=== PATIENT | male | born 1990 | race Two or more races ===

== ENCOUNTER 2021-08-26 00:17 | Emergency (ER) | payer MEDICAID ==
[~2021-08-26] VITALS: Ht 172.7 cm; Wt 175.0 kg
[2021-08-26] MEDS ORDERED: LIDOCAINE 1% 10 ML VIAL ID ONE (01:15)
[2021-08-26] MEDS ORDERED: PERTUSS(ACELL),DIPH,TET VAC/PF 0.5 ML SYRINGE IM. ONE (01:15)
[2021-08-26] MEDS ORDERED: SULFAMETHOX/TRIMETH DS 800-160 MG/TABLET PO ONE (02:00)
[2021-08-26] MEDS ORDERED: CEPHALEXIN MONOHYDRATE 500 MG CAPSULE PO ONE (02:00)
[2021-08-26] MEDS ORDERED: ACETAMINOPHEN 325 MG TABLET PO ONE (02:00)
[2021-08-26] MEDS ORDERED: CLINDAMYCIN HCL 150 MG CAPSULE PO ONE (02:15)
[2021-08-26 02:21] VITALS: BP 121/66
== END 2021-08-26 02:50 | disposition left against medical advice (07) ==
LOC: EMS 00:18
DX: A41.9 Sepsis, unspecified organism (principal); L02.413 Cutaneous abscess of right upper limb; F11.10 Opioid abuse, uncomplicated; F17.210 Nicotine dependence, cigarettes, uncomplicated
CPT/HCPCS: 10060; 90471; 90715; 99284; J3490

== ENCOUNTER 2021-08-28 00:09 | Emergency (ER) | payer MEDICAID ==
[~2021-08-28] VITALS: Ht 171.4 cm; Wt 79.5 kg
[2021-08-28 02:44] LABS: COVID AG,FIA SOURCE NASOPHARYNGEAL
[2021-08-28] MEDS ORDERED: ACETAMINOPHEN 500 MG TABLET PO ONE (02:45)
[2021-08-28] MEDS ORDERED: 0.9% SODIUM CHLORIDE 10 ML SYRINGE IVP PRN (02:45)
[2021-08-28] MEDS ORDERED: SODIUM CHLORIDE 0.9% 1,000 ML IV ONE (02:45)
[2021-08-28 03:22] LABS: BASOPHILS % (AUTO) 0.2 % (0.0-2.0); EOSINOPHILS % (AUTO) 0 % (1.0-6.0); HEMATOCRIT 28.9 % (41-53); HEMOGLOBIN 9.2 g/dL (13.5-17.5); LYMPHOCYTES # (AUTO) 1.5 K/uL (1.0-4.8); LYMPHOCYTES % (AUTO) 10.2 % (22.0-44.0); MEAN CORPUSCULAR HEMOGLOBIN 23.6 pg (26.0-34.0); MEAN CORPUSCULAR VOLUME 74 fL (80-100); MONOCYTES # (AUTO) 1.5 K/uL (0.1-1.0); MONOCYTES % (AUTO) 10.5 % (2.0-9.0); NEUTROPHILS # (AUTO) 11.6 K/uL (1.8-7.7); NEUTROPHILS % (AUTO) 79.1 % (40.0-70.0); PLATELET COUNT (AUTO) 408 K/uL (150-450); RED BLOOD CELL COUNT(AUTO) 3.92 MIL/uL (4.50-5.90); RED CELL DISTRIBUTION WIDTH 13.6 % (11.5-14.5)
[2021-08-28 03:35] LABS: ANION GAP 11 mmol/L (8-16); CALCIUM, TOTAL 8.2 mg/dL (8.8-10.5); CARBON DIOXIDE 25 mmol/L (22-29); CHLORIDE 97 mmol/L (98-107); CREATININE 0.78 mg/dL (0.60-1.30); GLOMERULAR FILTR. RATE CALC > 60 mL/min (>60); GLUCOSE,RANDOM 97 mg/dL (70-110); INR 1.2 (0.9-1.1); POTASSIUM 4.1 mmol/L (3.5-5.1); PROTHROMBIN TIME 12.6 SEC (9.4-11.6); SODIUM SERUM 133 mmol/L (136-145); UREA NITROGEN, BLOOD 10 mg/dL (7-18)
[2021-08-28 03:41] LABS: ALANINE AMINOTRANSFERASE 33 U/L (12-78); ALBUMIN 2.9 g/dL (3.4-5.0); ALKALINE PHOSPHATASE 89 U/L (46-116); ASPARTATE AMINOTRANSFERASE 33 U/L (15-37); BILIRUBIN,TOTAL 0.2 mg/dL (0.1-1.0); TOTAL PROTEIN, SERUM 7.5 g/dL (6.4-8.2)
[2021-08-28 03:44] LABS: LACTIC ACID 0.5 mmol/L (0.4-2.0)
[2021-08-28 04:29] VITALS: BP 119/73
== END 2021-08-28 05:00 | disposition home or self-care (01) ==
LOC: EMS 00:10
DX: L02.413 Cutaneous abscess of right upper limb (principal); R50.9 Fever, unspecified; D50.9 Iron deficiency anemia, unspecified; D72.829 Elevated white blood cell count, unspecified; F11.10 Opioid abuse, uncomplicated; F17.210 Nicotine dependence, cigarettes, uncomplicated; Z20.822 Contact with and (suspected) exposure to COVID-19
CPT/HCPCS: 36415; 71045; 73030; 80053; 83605; 85025; 85610; 87040; 87426; 93005; 96360; 99285; J7030

== ENCOUNTER 2021-08-30 02:27 | Emergency (ER) | payer MEDICAID ==
[~2021-08-30] VITALS: Ht 170.2 cm; Wt 79.5 kg
[2021-08-30 02:28] VITALS: BP 116/67
== END 2021-08-30 03:07 | disposition home or self-care (01) ==
LOC: EMS 02:29
DX: L02.413 Cutaneous abscess of right upper limb (principal); F17.210 Nicotine dependence, cigarettes, uncomplicated; F11.90 Opioid use, unspecified, uncomplicated
CPT/HCPCS: 99281; Z7502